=== PATIENT | female | born 1975 | race Caucasian/White ===

== ENCOUNTER 2017-02-18 05:50 | Inpatient (IN) ==
[2017-02-16 12:18] LABS: Basophils # 0.1 10*3/uL (0.0-0.2); Basophils % 0.7 % (0.0-0.8); Eosinophils # 0.2 10*3/uL (0.0-0.87); Hematocrit 44.1 VOL% (35.7-47.0); Hemoglobin 15.4 GM/DL (12.0-16.0); Immature Granulocytes % 0.4 %; Immature Granulocytes Absolute 0.03 #; Lymphocytes # 1.6 10*3/uL (1.4-4.0); Mean Corpuscular HGB Conc 34.9 GM/DL (32-36); Mean Corpuscular Hemoglobin 35 PG (27-34); Mean Corpuscular Volume 98.9 FL (87-102); Mean Platelet Volume 10.3 FL (9.6-12.0); Monocytes # 0.4 10*3/uL (0.11-0.8); Neutrophils # 5.4 10*3/uL (1.4-7.4); Neutrophils % 70.9 % (38.7-73.9); Platelet Count 325 T/CUMM (130-400); Red Blood Count 4.46 MC/CUMM (3.8-5.5); Red Cell Distribution Width 12.9 % (9.3-17.3); White Blood Count 7.6 T/CUMM (4-12)
[2017-02-16 12:30] LABS: Apearance,Urine CLEAR (Clear); Bilirubin,Urine Negative (Negative); Blood, Urine Negative (Negative); Glucose,Urine (UA) Negative (Negative); Ketones,Urine Negative (Negative); Mucus,Urine Occasional /LPF (Occasional); Nitrite,Urine Negative (Negative); Protein,Urine Negative; RBC,Urine 2 /HPF (0-4); Squamous Epithelial Cell,Urine Occasional /HPF (0-10); Urine Color Yellow (Yellow); Urine Specific Gravity 1.014 (1.001-1.035); Urine Urobilinogen < 2.0 EU/DL (0.2-1.0); WBC,Urine 1 /HPF (0-6)
[2017-02-16 12:55] LABS: Albumin 3.5 G/DL (3.4-5.0); Bilirubin,Total 0.7 MG/DL (0.2-1.0); Calcium 9.2 MG/DL (8.5-10.1); Osmolality,Calculated 271.7 MOS/KG (273-304); Potassium 4.3 MMOL/L (3.5-5.1); Risk Ratio 3.7; Total Protein 7.1 G/DL (6.4-8.3); VLDL CHOLESTEROL 31.2 MG/DL
[2017-02-16 20:00] LABS: HIV Antigen/Antibody Result Nonreactive (Nonreactive)
[2017-02-18] MEDS ORDERED: AMPICILLIN/SULBACTAM 3,000 MG in SODIUM CHLORIDE 0.9% 100 ML IV ONE (06:00)
[2017-02-18] MEDS ORDERED: FAMOTIDINE 20 MG TABLET PO ONE (06:33)
[2017-02-18] MEDS ORDERED: DIAZEPAM 5 MG TABLET PO ONE (06:33)
[2017-02-18] MEDS ORDERED: DIAZEPAM 5 MG TABLET ONE (06:46)
[2017-02-18] MEDS ORDERED: FAMOTIDINE 20 MG TABLET ONE (06:47)
[2017-02-18] MEDS ORDERED: SODIUM CHLORIDE 0.9% 100 ML IV ONE (07:05)
[2017-02-18] MEDS ORDERED: AMPICILLIN/SULBACTAM 3,000 MG VIAL ONE (07:05)
[2017-02-18] MEDS ORDERED: cloNIDine 0.1 MG TABLET PO ONE (07:09)
[2017-02-18] MEDS ORDERED: cloNIDine 0.1 MG TABLET ONE (07:11)
--- NOTE | 2017-02-18 07:22 | XRay Report ---
Chest, 2 views History respiratory preop screening Comparison 09/16/2010 The heart is normal in size. Hilar contours unchanged The trainee a nodular density in the right mid chest felt to be a confluence of vessel and rib shadow similar on the prior study No acute infiltrate or pneumothorax seen Impression: No acute pathology seen PROCEDURE INTERPRETED AT [facility] DEPARTMENT OF RADIOLOGY Final Report Signed by: Dr. Consuelo Moreno
--- NOTE | 2017-02-18 08:00 | EKG Report ---
Stationary ECG Study [facility] Test Date: 02/18/2017 6:58:53 AM Pat Name: TANYA CASTILLO Department: Room: 609 Gender: F Manufacturing Technician: RICARDO : 1975 Requested by: Aj Demarco Order Number: [id number] Reading MD: GARRICK MCKINLEY Intervals [place] Rate: 77 P: 26 AL: 167 QRS: 48 QRSD: 92 T: 54 QT: 421 QTc: 453 Interpretive Statements SINUS RHYTHM WITH OCCASIONAL ECTOPIC PREMATURE COMPLEXES at 77 bpm Mildly "peaked" T waves; consider hyperkalemia Electronically Signed On 02-19-17 08:40:11 CDT by GARRICK MCKINLEY [email or web address]
[2017-02-18] MEDS: LACTATED RINGERS 1,000 ML IV SCH ×3 (08:06→12:57)
[2017-02-18] MEDS ORDERED: hydrALAZINE 20 MG/1 ML VIAL ONE (08:31)
--- NOTE | 2017-02-18 08:41 | History and Physical Update ---
History and Physical Update - History and Physical H&P was reviewed, the patient examined and there: are no changes in the patients condition since last H&P was completed.
[2017-02-18] MEDS ORDERED: SCOPOLAMINE 1.5 MG PATCH TRANSDERM ONE (08:53)
[2017-02-18] MEDS ORDERED: LABETALOL 100 MG/20 ML VIAL IV ONE (09:29)
[2017-02-18] MEDS ORDERED: MIDAZOLAM 2 MG/2 ML VIAL ONE (09:29)
[2017-02-18] MEDS ORDERED: ACETAMINOPHEN 1,000 MG/100 ML VIAL IV ONE (09:29)
[2017-02-18 09:39] LABS: Apearance,Urine CLEAR (Clear); Bilirubin,Urine Negative (Negative); Blood, Urine Negative (Negative); Glucose,Urine (UA) Negative (Negative); Ketones,Urine Negative (Negative); Mucus,Urine Occasional /LPF (Occasional); Nitrite,Urine Negative (Negative); Protein,Urine Negative; RBC,Urine 2 /HPF (0-4); Squamous Epithelial Cell,Urine Occasional /HPF (0-10); Urine Color Yellow (Yellow); Urine Specific Gravity 1.013 (1.001-1.035); Urine Urobilinogen < 2.0 EU/DL (0.2-1.0); WBC,Urine 1 /HPF (0-6)
--- NOTE | 2017-02-18 12:02 | Operative Note ---
Date of procedure: 02/18/17 Procedure: Preoperative diagnosis: [] Severe endometriosis, pelvic pain Postoperative diagnosis: Same Anesthesia: General. endotracheal anesthesia Estimated blood loss: [] Surgeon: Dr. Demarco, Dr. Keaton roche severe endometriosis with adhesions involving the sigmoid colon, Findings: [] Large right endometrioma, multiple areas of endometriosis scattered throughout the pelvis Complications:, small 1 cm perforation in the sigmoid this was identified and general surgery was notified Procedure: Robotic hysterectomy and a bilateral salpingo-oophorectomy, repair of a small 1 cm perforation in the sigmoid by Dr. Keaton roche which he will dictate After the risk, benefits and alternatives were explained to the patient in detail and informed consent was obtained, the patient was taken to the operating room and placed in supine position. Achieving appropriate general endotracheal anesthesia, the patient was carefully repositioned in low lithotomy position in Slick stirrups., Vagina and abdomen were prepped and draped in the usual sterile fashion. Was placed which revealed clear urine. Appropriate time out, a weighted speculum was placed in the vagina. The anterior lip of the cervix was grasped and the single-tooth tenaculum and the uterus sounded to 10 cm. A medium-sized Maribell manipulator cup with a 8 cm stem with balloon occluder was attached to the Maribell arch manipulator apparatus which was placed without difficulty and secured in the anterior and posterior lips of the cervix using 0 Vicryl suture. After regloving with the patient flat and an NG tube in place, a supraumbilical incision was made and while elevating on the anterior abdominal wall using a towel clip, a Veress needle was inserted through the supraumbilical incision and peritoneal space with insufflation of the abdomen with CO2 gas. The 4 mm pressure rapid insufflation was then performed to achieve a pneumoperitoneum of 5 L at 20 mm of pressure. While elevating on the anterior abdominal wall using a towel clip, a 12 mm trocar inserted through the supraumbilical incision and peritoneal space with appropriate entry confirmed by direct visualization via the laparoscope. There was no evidence of any damage to underlying structures. An 8 mm robotic trocar was placed after trans-illumination of the inferior epigastric vessels bilaterally and a 512 step trocar was placed in the left upper quadrant also under direct visualization without complications the patient was then placed in Trendelenburg and the da Charo robot successively side docked. The rest of the procedure was performed through the robotic console. On visualization of the pelvis[], both ureters were identified. The utero-ovarian ligaments were identified bilaterally and taken down using PK bipolar and monopolar scissors and double burn techniques and this was carried out to the round ligaments bilaterally on maintaining cephalic traction on the Maribell manipulator. The sigmoid along with multiple adhesions were attached to the large right ovary. On attempting to dissect the filmy adhesions it was immediately noted that there was approximately 1 cm opening on the sigmoid. At this particular time Dr. Keaton roche was identified and he then proceeded to repair this and his dictation will follow the bladder flap was created anterior along the lower uterine segment using monopolar scissors. And the uterine vessels were skeletonized bilaterally and dissected. The broad ligament was also dissected as well under direct visualization. The uterine vessels were taken down and double burn technique while maintaining cephalic traction on the Maribell manipulator and using the rim of the manipulator as a template. The monopolar scissors was used to try and transect the vagina from the cervix at the level of the l vaginal fornices and the specimen was removed to the mid vagina. The vaginal cuff was made hemostatic using fenestrated bipolar forceps and the vaginal cuff was closed using 0 the lock suture in a running fashion beginning at the right angle and overlapping past the midline. The uterosacral ligaments were reefed in the midline and a Hyman type fashion for adequate elevation of the vaginal vault. Hemostasis was noted to be excellent. The ureters were identified to be functioning throughout the course of the surgery. Note that once all trochars had been place the abdominal pressure had been reduced to 50 mm of pressure upon completion of the procedure to confirm good hemostasis. All instruments were removed. The da Charo robot was successfully undocked. The patient placed back in the lithotomy position. The abdomen completely deflated. All trochars removed and trocar sites closed in the usual fashion with 0 Vicryl suture on the fascia and skin closed with yajaira. Vasquez cath was then removed. Indigo carmine was administered intravenously followed by Lasix and flexible cystoscopy was performed using normal saline. Normal reflux were noted from ureters bilaterally. Vasquez catheter was replaced. Patient taken out of lithotomy position and awakened from anesthesia without complications. The patient was taken to recovery room in stable condition. All sponges needle and instrument counts were correct 3 at the end of this procedure. Surgeon / Physician: Aj Demarco Results - Labs CBC & BMP: 02/16/17 12:10 02/16/17 12:10 Discharge Plan - Discharge Medications No Action Losartan Potassium [Cozaar] 100 mg PO QAM cloNIDine HCl [Clonidine HCl] 0.1 mg PO BID PRN PRN Reason: Blood Pressure-Increased - Follow Up or Referral - Forms/Instructions
--- NOTE | 2017-02-18 12:08 | Anesthesia Post-Op ---
Anesthesia Post OP - Post Ansesthetic Evaluation Patient seen in post op: Yes Resp: within normal limits CV: within normal limits Mental: within normal limits Temp: within normal limits [id number]: within normal limits Nausea and Vomiting: within normal limits Pain: within normal limits
[2017-02-18] MEDS ORDERED: MEPERIDINE 25 MG/1 ML VIAL IV PRN (12:13)
[2017-02-18] MEDS ORDERED: ONDANSETRON 4 MG/2 ML VIAL IV PRN (12:13)
[2017-02-18] MEDS ORDERED: HYDROmorphone 2 MG/1 ML VIAL ONE (12:14)
[2017-02-18] MEDS: HYDROmorphone 2 MG/1 ML VIAL IV PRN ×3 (12:15→12:55)
[2017-02-18] MEDS ORDERED: HYDROmorphone PCA 30 MG/30 ML SYRINGE IV ONE (13:12)
[2017-02-18] MEDS ORDERED: NALOXONE 0.4 MG/ML VIAL IV PRN (13:28)
[2017-02-18] MEDS ORDERED: HYDROmorphone PCA 30 MG/30 ML SYRINGE IV SCH (13:30)
[2017-02-18] MEDS: METOCLOPRAMIDE 10 MG/2 ML VIAL IV SCH (15:29)
[2017-02-18] MEDS: CLINDAMYCIN INJ 900 MG in PREMIX 1 EACH IV SCH (16:48)
--- NOTE | 2017-02-18 17:35 | Event Note ---
General Surgery Progress Note Chief complaint This patient is a 41-year-old woman admitted for robotic assisted laparoscopic hysterectomy for which I was consulted for assistance with lysis of adhesions and repair of sigmoid colon injury that was repaired with a primary repair on Interval history No events since OR. Vasquez catheter is having some issues with drainage of the bladder scan revealed no urinary retention and irrigation of the Vasquez did not solve the issue. The patient is making a small amount of urine. Vital signs were normal but recently dropped blood pressure down to the 90s likely due to pain medication administration. Pain is well controlled. Patient is not tachycardic or febrile. She is having some suprapubic discomfort but overall she is comfortable. Physical exam The patient is afebrile with slight hypertension but otherwise normal vital signs Abdominal exam is revealing expected postoperative tenderness Labs None new Imaging None new Assessment and plan Continue routine postop hysterectomy care I will defer Vasquez management to Dr. Demarco
--- NOTE | 2017-02-18 17:35 | Operative Note ---
Date of procedure: 02/18/17 Pre-op diagnosis: Sigmoid colon injury Post-op diagnosis: same Procedure: Preoperative diagnosis Sigmoid colon injury Postoperative diagnosis Same Procedures performed 1. Robotic assisted laparoscopic repair of sigmoid colon injury measuring 1 cm 2. Robotic assisted laparoscopic lysis of adhesions 3. Rigid proctoscopy Findings I was called into the operating room for a laceration to the sigmoid colon. This is in the mid sigmoid colon on the antimesenteric border. There was a full -thickness injury measuring 1 cm in size. The edges of the wound and one area were a little bit necrotic and roughed up to this was trimmed back to healthy bowel and the sigmoid colon was then freed up from the pelvic sidewall and the right ovary and adnexa with lysis of adhesions. No additional bowel injuries were seen. The laceration was closed in 2 layers with a 3-0 Vicryl running closure followed by a 2-0 silk Lembert suture to dunk the suture line. The wound was then covered with Tisseel and a rigid proctoscopy revealed no evidence of leak prior to placing the Tisseel on the closure site. The rectum and sigmoid was patent and there was no leak on the airleak test. Complications None apparent Specimen None on my behalf Anesthesia GETA Blood loss 5 mL on my behalf Indications Sigmoid colon injury with dense adhesions in the pelvis from pelvic adhesions due to adnexal disease. No consent was obtained due to the fact that I did not know the patient before she was asleep under general anesthesia. This was discussed with the family intraoperatively. Description of procedure The patient was already in the operating room under general anesthesia with CO2 insufflation in the abdomen. A sigmoid colon injury had been exposed and was easy to visualize. I entered the console of the robot and further explore this area. There was some area of torn bowel at the edges of the laceration and this was debrided back to healthy tissue. The sigmoid colon was then mobilized off of the pelvic sidewall on the patient's right side. No additional bowel injury were seen. The lysis of adhesions was completed by mobilizing the sigmoid colon off of the right adnexa and off of the cul-de-sac until this was dissected down far enough to perform the hysterectomy. The sigmoid colon laceration was then closed with a running 3-0 Vicryl full-thickness closure followed by oversewing with 2-[address] Demarco then completed his portion of the procedure. I came back into the operating room and scrubbed at the bedside to perform a rigid proctoscopy which revealed a patent anastomosis with no air leak test even with instillation of saline in the pelvis to cover the repair site. Again airleak test was negative and the repair was patent and well perfused internally. The proctoscope was discarded and I scrubbed and reentered the bedside portion of the case where the irrigation was suctioned out and Tisseel was placed over the repair and over the vaginal cuff. I then left the operating room at this point in time. Postoperative plan Diet as tolerated and routine postop hysterectomy Anesthesia: SONG Surgeon / Physician: Keaton Holguin Estimated blood loss: minimal Specimens: none sent Condition: stable Disposition: PACU Results - Labs CBC & BMP: 02/16/17 12:10 02/16/17 12:10 Discharge Plan - Discharge Medications No Action Losartan Potassium [Cozaar] 100 mg PO QAM cloNIDine HCl [Clonidine HCl] 0.1 mg PO BID PRN PRN Reason: Blood Pressure-Increased - Follow Up or Referral - Forms/Instructions
[2017-02-18] MEDS: KETOROLAC 30 MG/1 ML VIAL IV PRN (20:19)
[2017-02-18] MEDS ORDERED: LACTATED RINGERS 1,000 ML IV SCH (22:00)
[2017-02-19] MEDS: CLINDAMYCIN INJ 900 MG in PREMIX 1 EACH IV SCH ×2 (00:23→08:35)
[2017-02-19] MEDS: METOCLOPRAMIDE 10 MG/2 ML VIAL IV SCH ×4 (02:14→21:53)
[2017-02-19] MEDS: KETOROLAC 30 MG/1 ML VIAL IV PRN ×3 (05:53→19:13)
[2017-02-19 06:23] LABS: Basophils % 0.1 % (0.0-0.8); Eosinophils % 0.1 % (0.00-10.9); Hematocrit 36.1 VOL% (35.7-47.0); Immature Granulocytes % 0.6 %; Lymphocytes # 1.8 10*3/uL (1.4-4.0); Lymphocytes % 11.2 % (21.3-54.2); Mean Corpuscular HGB Conc 34.3 GM/DL (32-36); Mean Corpuscular Hemoglobin 35 PG (27-34); Mean Corpuscular Volume 100.8 FL (87-102); Mean Platelet Volume 10.8 FL (9.6-12.0); Monocytes # 1.1 10*3/uL (0.11-0.8); Monocytes % 6.7 % (1.7-12.7); Neutrophils # 13.4 10*3/uL (1.4-7.4); Neutrophils % 81.3 % (38.7-73.9); Platelet Count 260 T/CUMM (130-400); Red Blood Count 3.58 MC/CUMM (3.8-5.5)
[2017-02-19 06:25] LABS: Hemoglobin 12.4 GM/DL (12.0-16.0); White Blood Count 16.5 T/CUMM (4-12)
[2017-02-19] MEDS ORDERED: ESTRADIOL VALERATE IM 100 MG/5 ML VIAL IM ONE (10:06)
[2017-02-19] MEDS: MAGNESIUM HYDROXIDE SUSP 30 ML UDCUP PO PRN ×2 (10:29→19:13)
[2017-02-19] MEDS: DOCUSATE SODIUM 100 MG CAPSULE PO SCH ×2 (10:29→20:22)
[2017-02-19] MEDS: LOSARTAN 50 MG TABLET PO SCH (12:19)
--- NOTE | 2017-02-19 13:27 | Pathology Report from [facility] ---
[facility] ACCESSION # : [id number] PATIENT NAME : Negrita Castillo ORDERING DR : MARANDA MOONEY MD CLINICAL HX: Endometriosis/Chronic pelvic pain POST-OP DX: Same SPECIMEN INFO: Uterus, cervix, right and left tubes and ovaries GROSS DESCRIPTION: The specimen is received in formalin labeled with the patients name NEGRITA CASTILLO and consists of a 115 gram uterus and cervix which measures 8.4 x 6.2 x 4.0 cm . The serosa is red-mallory with adhesions noted. The cervix measures 3.7 cm. The cervical os measures 0.8 cm. The endocervical canal is mallory and patent. The endometrial cavity is hemorrhagic with a mucosal thickness of 0.2 cm. Sectioning reveals no gross abnormalities. The right ovary measures 4.3 x 4.3 cm and consists primarily of a ruptured hemorrhagic cyst. The right fallopian tube is fimbriated and measures 4.5 x 0.9 cm The left ovary is yellow-pink and measures 3.0 x 2.2 cm. Sectioning reveals a few hemorrhagic clear fluid filled cysts measuring up to 0.5 cm. The adjacent fallopian tube is fimbriated and measures 4.5 x 1.0 cm. Sections submitted: A cervix, B and C endomyometrium, D serosal adhesions, E right ovary , F right tube, G left ovary and tube. DIAGNOSIS FOR NEGRITA CASTILLO: UTERUS, CERVIX, RIGHT & LEFT TUBES & OVARIES: Chronic cystic cervicitis. Proliferative endometrium. Serosal fibrous adhesions. Right ovary with a hemorrhagic cyst c/w endometriosis; fallopian tube. Left ovary with follicular cysts; fallopian tube. COLLECTED DATE: 02/18/2017 [facility] REPORT DATE: 02/19/2017 ELECTRONICALLY SIGNED BY: Ligia Roland M.D. 02/19/2017 - 10:16:30 LYDIA
--- NOTE | 2017-02-19 13:31 | Event Note ---
General Surgery Progress Note Chief complaint This patient is a 41-year-old woman admitted for robotic assisted laparoscopic hysterectomy for which I was consulted for assistance with lysis of adhesions and repair of sigmoid colon injury that was repaired with a primary repair on Interval history No events overnight. Patient is passing gas. No bowel movements yet. Pain is well controlled. Vasquez catheter was removed yesterday and she feels better. No nausea or vomiting. Physical exam Afebrile normal vital signs Abdominal exam is revealing expected postoperative tenderness Labs None new Imaging None new Assessment and plan Continue routine postop hysterectomy care Increase activity
[2017-02-19] MEDS ORDERED: SIMETHICONE CHEW 80 MG TABLET PO PRN (19:09)
[2017-02-19] MEDS ORDERED: oxyCODONE/ACETAMINOPHEN 5-325 MG TABLET PO PRN (19:09)
[2017-02-20] MEDS: oxyCODONE/ACETAMINOPHEN 5-325 MG TABLET PO PRN ×2 (00:59→07:36)
[2017-02-20] MEDS: LOSARTAN 50 MG TABLET PO SCH ×2 (07:37→10:06)
[2017-02-20] MEDS: KETOROLAC 30 MG/1 ML VIAL IV PRN (07:37)
[2017-02-20] MEDS: DOCUSATE SODIUM 100 MG CAPSULE PO SCH ×2 (07:38→10:06)
[2017-02-20 08:24] VITALS: BP 158/103
--- NOTE | 2017-02-20 11:06 | Discharge Summary ---
Hospital Course - Hospital Course Hospital Course: Postop day #2 Status post robotic hysterectomy secondary to severe endometriosis and small laceration of the sigmoid. Sigmoid lesion was approximately maybe a centimeter and a half by a centimeter and a half which was pared robotically by Dr. Keaton Holguin. Patient's had multiple bowel movements passing gas and has not experienced any fever chills shortness of breath or severe abdominal pain. Extremities well with no limits Incision sites intact yajaira will be removed today before discharge. Continue with present therapy possible discharge today follow-up for office approximately 2 weeks. Specialty Discharge - Follow Up or Referrals Follow up with: Aj Demarco MD [Physician] - 03/04/17 10:30 am Discharge Plan - Discharge Data Condition at Discharge: Stable Discharge Diet: advance to your usual diet Activity: increase activity as tolerated Hygiene: may shower Weight Bearing at Discharge: weight bear as tolerated Driving: not until seen by doctor Contact your physician if you experience:: fever over 101, Difficulty voiding, Shortness of breath, Bleeding - Discharge Medications New Ibuprofen Tab [Motrin Tab] 800 mg PO Q8H #30 tablet oxyCODONE/ACETAMINOPHEN 5-325 [Percocet 5-325] 1 tablet PO Q4H PRN #30 tablet PRN Reason: Pain Moderate (4-7) Estradiol Tab [Estrace Tab] 2 mg PO DAILY #30 tablet No Action Losartan Potassium [Cozaar] 100 mg PO QAM cloNIDine HCl [Clonidine HCl] 0.1 mg PO BID PRN PRN Reason: Blood Pressure-Increased - Follow Up or Referral Follow Up: Aj Demarco MD [Physician] - 03/04/17 10:30 am - Forms/Instructions Instructions: Robot Assisted Laparoscopic Hysterectomy (DC) Exam - Constitutional Vitals: Period Temp Pulse Resp BP Sys/Lucia Pulse Ox Last 24 Hr 96.8 F-98.7 F 80-92 18-20 115-165/75-103 95-100 DS: Provider Date of admission: 02/18/17 05:50 Primary care physician: . No PCP Attending physician on admission: Aj Demarco MD Discharging clinician: Aj Demarco MD
--- NOTE | 2017-02-20 11:26 | Event Note ---
General Surgery Progress Note Chief complaint This patient is a 41-year-old woman admitted for robotic assisted laparoscopic hysterectomy for which I was consulted for assistance with lysis of adhesions and repair of sigmoid colon injury that was repaired with a primary repair on Interval history The patient is doing well today. She feels better overall. Tolerating diet with no nausea or vomiting. Vital signs are normal. No fevers. The patient had some bowel movement yesterday and is passing gas. She is walking in the hallway. Pain is well controlled. Physical exam Afebrile normal vital signs Abdominal exam is revealing expected postoperative tenderness, slightly distended but normal bowel sounds Labs None new Imaging None new Assessment and plan Follow-up with me in clinic in 2 weeks
== END 2017-02-20 12:45 | disposition home or self-care (01) | DRG 909 ==
LOC: N.OR 05:50 → N.SDSINP 05:50 → N.OB 13:09 → EDSTATUS 13:30 → N.OB 17:46
PROVIDERS: ADMIT Obstetrics & Gynecology; ATTEND Obstetrics & Gynecology